=== PATIENT | male | born 1955 | race Caucasian/White ===

== ENCOUNTER → 2022-05-09 | Outpatient (CLI) | payer BC, SELFPAY ==
--- NOTE | 2022-05-09 16:14 | RAD_ITS ---
STUDY: X-RAY - LEFT FOOT CLINICAL: Male, 66 years old. PAIN TECHNIQUE: 3 view(s) of the foot. COMPARISON: None. FINDINGS: Normal talus, calcaneus, and tarsal bones. Normal visualized subtalar, talonavicular, calcaneocuboid, tarsal and tarsometatarsal articulations. Normal metatarsi. Normal metatarsophalangeal joint of the great toe. Normal tibial and fibular sesamoid bones. Normal interphalangeal joint of the great toe. Normal phalanges of the great toe. Normal second through fifth metatarsophalangeal joints. The is visualized hammertoe deformity of the third and fourth digits. There is a irregular appearance of the proximal interphalangeal joint of the fourth digit which may represent prior injury and/or degenerative change. The soft tissue structures are unremarkable. RAD/Foot min 3 Views IMPRESSION: The is visualized hammertoe deformity of the third and fourth digits. There is a irregular appearance of the proximal interphalangeal joint of the fourth digit which may represent prior injury and/or degenerative change. Electronically Signed: Yumi Marlow MD at 3:11 EDT Reading Location ID and State: [facility] / [place] Tel , Service support ,
== END | disposition home or self-care (01) ==
LOC: MTRAD 16:13
PROVIDERS: PCP Family Medicine; Referring Provider Podiatrist; Visit Provider Podiatrist
DX: M84.375A Stress fracture, left foot, initial encounter for fracture (principal); X58.XXXA Exposure to other specified factors, initial encounter
CPT/HCPCS: 73630

== ENCOUNTER → 2023-02-08 | Outpatient (CLI) | payer BC, SELFPAY ==
[2023-02-08 18:17] LABS: Hemoglobin A1c 8.2 % (3.8-5.6)
== END | disposition home or self-care (01) ==
LOC: MTLAB 15:47
PROVIDERS: PCP Family Medicine; Referring Provider Orthopaedic Surgery; Visit Provider Orthopaedic Surgery
DX: E11.9 Type 2 diabetes mellitus without complications (principal)
CPT/HCPCS: 36415; 83036

== ENCOUNTER → 2023-03-08 | Outpatient (CLI) | payer BC, SELFPAY ==
[2023-03-08 18:19] LABS: Hemoglobin A1c 7.3 % (3.8-5.6)
== END | disposition home or self-care (01) ==
LOC: MTLAB 15:17
PROVIDERS: PCP Family Medicine; Referring Provider Orthopaedic Surgery; Visit Provider Orthopaedic Surgery
DX: E11.9 Type 2 diabetes mellitus without complications (principal)
CPT/HCPCS: 36415; 83036

== ENCOUNTER 2023-05-01 10:02 | Observation (INO) | payer BC, MEDICARE, SELFPAY ==
[2023-04-17 17:18] LABS: Absolute Lymphocyte Count 1.66 X10^3/uL (0.83-4.51); Basophil# 0.03 X10^3/uL; Basophil% 0.5 % (0-1); Eosinophil# 0.12 X10^3/uL; Eosinophils% 1.9 % (0-5); Hematocrit 47.1 % (40-54); Hemoglobin 15.8 g/dL (13.0-16.5); Lymphocyte # 1.66 X10^3/ul (0.83-4.51); Lymphocyte % 26.1 % (19-41); Mean Corp Hgb Conc 33.5 g/dL (32-36); Mean Corpuscular Hgb 31.5 pg (27.0-32.0); Mean Corpuscular Volume 93.8 fL (80-94); Monocyte# 0.58 X10^3/uL; Monocyte% 9.1 % (0-10); NRBC Flagged by Analyzer 0 % (0-5); Neutrophil # 3.96 X10^3/uL (2.7-7.7); Neutrophil % 62.1 % (47-70); Platelet Count 194 K/mm3 (150-450); RBC Distribution Width CV 11.9 % (11.6-14.6); RBC Distribution Width SD 41.1 fl (35.1-43.9); Red Blood Count 5.02 M/mm3 (4.6-6.2); White Blood Count 6.4 K/mm3 (4.4-11.0)
[2023-04-17 17:51] LABS: Anion Gap 6 (5-15); BUN 21 mg/dL (7-18); BUN/Creat Ratio 27.7 RATIO (10-20); Calcium,Total 9.4 mg/dL (8.5-10.1); Chloride 105 mmol/L (98-107); Creatinine, Serum 0.76 mg/dL (0.70-1.30); EST Glomerular Filtration Rate 108 mL/min (>60); Est Glom Filt Rate - Afr Amer 131 mL/min (>60); Glucose 106 mg/dL (74-106); Magnesium 2.3 mg/dL (1.6-2.6); Potassium 4.4 mmol/L (3.5-5.1); Sodium Level 138 mmol/L (136-145)
[2023-04-17 18:22] LABS: HIV - WCH Non-Reactive (Nonreactive)
--- NOTE | 2023-04-20 09:19 | EKG12_ITS ---
Test Reason : PREOP Blood Pressure : / mmHG Vent. Rate : 064 BPM Atrial Rate : 064 BPM P-R Int : 184 ms QRS Dur : 090 ms QT Int : 360 ms P-R-T Axes : 049 074 059 degrees QTc Int : 371 ms Normal sinus rhythm Normal ECG Confirmed by KALI FAJARDO ([id number]), city editor LEXI LONGORIA ([id number]) on 04/24/2023 9:04:18 AM Referred By: Luis Enrique Aceves Confirmed By:KALI FAJARDO
[2023-04-26 18:10] LABS: Hepatitis B Surface Antibody Reactive; Hepatitis C Antibody Non-Reactive (Nonreactive)
[2023-04-28 08:10] LABS: Hepatitis A AB, Total Negative (Negative)
--- NOTE | 2023-04-30 09:02 | HP.PCM_ITS ---
History and Physical Add?Addendum MR#: [id number] Acct: [id number] Name: NEFTALY KYLE Rep #: [id number] : 1955 Provider: Dr. Luis Enrique Aceves DO Age/Sex: 67/M [place] [facility] [place] Status: Signed Intake Intake Visit Reasons: LUMBER SPINE Chief Complaint: left low back/ hip pain Is patient in pain?: Yes (left low back/hip) Pain scale (1-10): 6 Allergies No Known Allergies Allergy (Unverified 11/29/22 15:25) [facility] Medical History (Updated 01/17/23 @ 15:33 by Gena Luque) Acute bronchitis, unspecified Surgical History (Updated 11/23/22 @ 14:41 by Steph Jovel) H/O repair of rotator cuff History of appendectomy History of hernia repair Social History (Updated 11/23/22 @ 14:42 by Steph Jovel) household members: spouse Smoking Status: Former smoker alcohol intake: current HPI LUMBER SPINE Chief Complaint: left low back/ hip pain Details: Parts of this documentation were recorded by a scribe, this documentation accurately reflects the service provided and the decisions made by me, Dr. Luis Enrique Aceves DO 01/17/23 [id number]. NEFTALY KYLE is a 67 year old M here today for left low back and left hip pain. Pt. advises he fell down 3 steps back on 11-18-22 and landed on his left wrist. He has had recent lumbar MRI at [facility]. He states his pain radiates into his left thigh to above the knee. He denies numbness or tingling. His pain is aggravated with sitting and laying positions. He treats pain at home with Tylenol and Motrin every 4 hours. Neftaly is a most pleasant gentleman 67 years old who presents in the company of his of 38 years Ramandeep. The story is well told above. The pain in the left side of the back and right buttocks and down the left thigh and even occasionally onto the leg below the knee started sometime later perhaps a week or 2 after the actual fall that he had. Overall is no better than it was. It is a lot harder to sit than it is to stand. He denies any bowel or bladder dysfunction. On examination it is noted that he has very positive tension signs and very positive straight leg raising on the left side. Bending forward makes the pain worse. Bending backward does not bother it at all. He does have a decreased posterior tibialis reflex on the left as compared to the right. He has slight weakness of the EHL on the left as compared to the right. He has no long tract signs. Clonus is absent Babinski's are downgoing. Patellar reflexes are 2+ and equal bilaterally and Achilles reflexes are 1+ and equal bilaterally. I reviewed the MRI scan done at [facility]. The gentleman has a herniated disc at L4-5 to the left side with a small extruded fragment that is right at the base of the L5 nerve root on the left. This of course is the source of his leg pain. It is described as an L5 dermatome. I explained that we should probably try epidural steroid injection for some relief at least at this time before any surgery is anticipated. I am sending him to Dr. Lao for a lumbar epidural steroid injection. I would like to visit with him 2 weeks after that is done. If he does not get reasonable relief or the pain comes back with a vengeance we will schedule him for surgical intervention. Coding Level of Care Code Off vis,new,level 3 Diagnoses Herniation of left side of L4-L5 intervertebral disc M51.26
[2023-05-01] VITALS (14 sets, daily range): BP systolic 108–138; BP diastolic 64–92; PULSE 70–97; RESP 14–18; TEMP 36–37.2; O2SAT 95–100; BMI 25.2
[2023-05-01] MEDS: Magnesium 1 GM over 15 mins IV (06:34)
[2023-05-01] MEDS: Acetaminophen 500 MG Tablet 1000 MG PO ×3 (06:34→22:25)
[2023-05-01] MEDS: Lactated Ringers 1,000 ML 15 ML IV ×2 (06:34→08:40)
[2023-05-01] MEDS: Insulin Lispro 100 UNIT/ML INSULN.PEN SC (06:39)
[2023-05-01 06:57] LABS: Bedside Glucose 283 mg/dL (74-106)
--- NOTE | 2023-05-01 07:30 | DISC_PTH ---
PATIENT: CAMMIE KYLE LOC: MS3 U#:[id number] AGE/SX: 67/M [place] [facility] [place]: Dr. Luis Enrique Aceves DO : 1955 BED: 1 DIS: 05/02/2023 SPEC #: [id number] RECD: 05/01/23 11:24 STATUS: SOL RESiobhan #: [id number] ASHLEY: 05/01/23 07:[address]: Luis Enrique Aceves DEPT: SURGICAL PATHOLOGY RECD BY: Saray Vegas ENTERED: 05/01/23 12:19 SP TYPE: DISC OTHR DR: Dr. Selvin Posey DO Tissues: Intervertebral disc, NOS Procedures: Surgery Specimen Level III HEADER OPERATION: Laminectomy and discectomy L4-L5 left PRE-OP DIAGNOSIS: Herniation of left side of L4-L5 intervertebral disc TISSUE SUBMITTED: L4-L5 disc MICROSCOPIC DIAGNOSIS L4-L5 disc, laminectomy and discectomy: Fragments of fibrocartilaginous tissue with degenerative changes. SO:gil 05/02/2023 MICROSCOPIC DESCRIPTION Slides are reviewed. GROSS DESCRIPTION Received in fixative is one container labeled with the patient's name and designated disc L4-L5. The specimen consists of multiple pieces of charles, indurated tissue that in aggregate measure 2.0 x 2.0 x 0.3 cm. The entire specimen is submitted in one cassette. / SO:gil 05/01/2023 TC:5 CPT: 79149
[2023-05-01 07:31] LABS: Bedside Glucose 200 mg/dL (74-106)
[2023-05-01] MEDS: Cefazolin 2 GM in 0.9% Normal Saline 100 ML IV (07:36)
--- NOTE | 2023-05-01 08:45 | RAD_ITS ---
HISTORY: LAMINECTOMY L4-5, LEFT PLEASE READ FOR PLACEMENT, SURGEON WANTS CONFIRMATION THAT HE IS AIMED AT L4-L5. TECHNIQUE: XR Spine Lumbar 1 View. COMPARISON: None. FINDINGS: VERTEBRAE: For the purposes of this report, the lowest intervertebral disc space is designated at L5-S1. Posterior elements appear intact. ALIGNMENT: No significant anterior or posterior subluxation. INTERVERTEBRAL DISCS: Degenerative endplate changes with mild intervertebral disc space narrowing at multiple levels. SOFT TISSUES: Posterior instrument at the L5-S1 level. RAD/Spine 1 View Any Level IMPRESSION: Posterior instrument at the L5-S1 level. Electronically Signed: Dimple Da Silva MD at 9:08 EDT ,
[2023-05-01] MEDS: THROMBIN (RECOMBINANT) 20,000 UNIT VIAL 20000 UNIT TOPICAL (08:52)
[2023-05-01 09:47] LABS: Bedside Glucose 107 mg/dL (74-106)
--- NOTE | 2023-05-01 10:07 | OP.PCM_ITS ---
Report of Operation Description of Surgical Findings:: Preoperative diagnosis: Herniated disc L4-5 with severe left L5 radiculopathy Postoperative diagnosis: The same Procedure: Lumbar laminectomy discectomy L4-5 on the left CPT code 49460 Surgeon: Dr. Aceves Patient Portal Representative: Bee Blanton NP Anesthesia: General endotracheal by [facility] EBL: Less than 25 cc Drains: None Complications: None Procedure: Patient was taken to the OR where he was placed under general endotracheal anesthesia. A Patel catheter was inserted. Neuro monitoring placed their leads on the patient. He was then put in the prone position on the Zia frame. Care was taken to protect his bony prominences, his genitalia, his ulnar nerves of both elbows, his brachial plexus bilaterally, and his facial features and neck. The back was then prepped and draped in standard fashion. I then made a longitudinal incision centered over what I thought was L4-5 and then opened the lumbar fascia just to the left of the spinous processes. We started with a very small incision so we could extend it if we were not exactly at the right level. We proved to be at L5-S1 I simply moved it up 1 and took another x-ray to confirm that it was now aimed at L4-5. Then elevated paravertebral muscles off the lamina of L4 and the top of the lamina of L5. Out the lamina of L4 with double-action rongeurs I then released the underside of the ligamentum flavum off of the bone of the lamina with such small curettes. Once this was done I went ahead and perform a laminectomy of L4 on the left. I then used a hockey-stick in the near midline and used a sharp knife to split the ligamentum flavum down to the lamina of L5. Then used a curette to release the ligamentum flavum off of the top of the lamina of L5. Then I used the 45 degree Kerrison rongeurs to start removing it. Note that the bulge up the dura was a little bit of a problem to get the remaining ligamentum flavum lateralward but I was able to do it very carefully and open the entire lateral recess. I also performed a laminotomy at the top of L5 and out to near the foramen. In this fashion I was able to retract the nerve root and dura medialward exposing the known herniated disc that was right at the introitus of the foramen. I cut into it with a 15 blade and noted that it was subligamentous I then removed several fragments underneath it that completely decompressed the the nerve then used a hockey- stick to check the foramen there was no more pressure on the L5 nerve. Thorough irrigation was carried out every 10 to 50 minutes in the course of the case to prevent infection. Once we were done we had excellent hemostasis I placed an amniotic membrane on the dura to prevent adhesions to form in the future. Then placed Gelfoam over that. It was so dry that we felt that we did not need a drain. We closed the lumbar fascia using [id number] suture with #1 Vicryl followed by closure of the subcutaneous tissues with 2-0 Vicryl in interrupted fashion. The skin was approximated using skin clips. Sterile dressings were then applied. The patient was then recovered in the OR was moved to his hospital bed and taken to recovery in satisfactory condition. This the end of operative summary on Neftaly Walker. This is Dr. Aceves dictating.
--- NOTE | 2023-05-01 14:38 | PN.HOSP_ITS ---
Subjective Subjective 67-year-old male presents to the hospital for an elective lumbar laminectomy and discectomy at L4-5 on the left due to herniated disc with radiculopathy. Still has some numbness and pain from surgery. No issues since arriving to the floor he says home medications have been stable and has had no recent changes. Objective Data Objective Data Vital Signs: Vital Signs Temp Pulse Resp BP Pulse Ox O2 Del Method O2 Flow Rate 98.1 F 94 18 110/64 98 Room Air 4 05/01/23 13:06 05/01/23 13:06 05/01/23 13:06 05/01/23 13:06 05/01/23 13:06 05/01/23 13:06 05/01/23 12:00 Oxygen Flow Rate (L/min) 4 Oxygen Delivery Method Room Air Weight: 156 lb 8.451 oz Body Mass Index (BMI) 25.2 Intake & Output: Intake and Output for Last 24 Hours 04/30/23 05/01/23 05/02/23 03:59 03:59 03:59 Intake Total 1212 / 1212 Output Total 800 / 800 Balance 412 / 412 Lab / Micro Data 04/17/23 16:51 04/17/23 16:51 Labs: Laboratory Results - last 24 hr 05/01/23 06:27: POC Glucose 283 H 05/01/23 07:14: POC Glucose 200 H 05/01/23 09:17: POC Glucose 107 H Micro: Microbiology 04/17/23 16:51 Swab (Method) Nasal Screen MRSA/MSSA - Final Radiography Diagnostic Testing: Radiology Impression Spine X-Ray 05/01/23 08:45 IMPRESSION: Posterior instrument at the L5-S1 level. Electronically Signed: Dimple Da Silva MD at 9:08 EDT , ADDENDUM: 05/01/23 0939 IMPRESSION: undefined Physical Exam Narrative General: Alert, Oriented x3, Cooperative, No apparent distress HEENT: Atraumatic, PERRLA, EOMI, Normocephalic Oral: Moist Mucosa Neck: Supple, No JVD Lungs: Clear to auscultation, Normal air movement, No rhonchi, No wheeze, No rales Cardiovascular: Regular rate, Regular Rhythm, Normal S1, Normal S2, No murmurs Abdomen: Soft, Non Tender, Non-Distended, No Hepato-splenomegaly Extremities: No edema, Capillary Refill Less than 3 Seconds Skin: Dressing CDI Musculoskeletal: No Tenderness to Palpation of Joints or Extremities Neurological: Cranial nerves II-XII grossly intact, Motor Exam 5/5 strength throughout, Sensory exam intact to light touch and pain Psych/Mental Status: Normal Affect, Appropriate Assessment & Plan Assessment/Plan (1) Herniation of left side of L4-L5 intervertebral disc: PLAN: Plan 1. Status post laminectomy and discectomy of L4-L5 on the left for disc h erniation on 05/01/2023 ? Pain management per primary ? PT/OT per primary 2. DM2 ? Blood sugars are stable, he is in home oral medications ? We will start on a sliding scale insulin with Accu-Cheks ACHS ? We will monitor ? We will be aware that if any imaging with contrast is necessary we will need to discontinue his home medic patient 3. Anxiety/depression ? Stable ? Continue with his home medications DVT: SCDs Charges/Coding Visit Charges Office Visits / Consults: 88878 OV L3 New
[2023-05-01] MEDS: Cefazolin 1 GM/50 ML BAG IV (15:02)
[2023-05-01] MEDS: Lactated Ringers 1,000 ML 100 ML IV (15:02)
[2023-05-01 16:45] LABS: Bedside Glucose 127 mg/dL (74-106)
[2023-05-01] MEDS: diazePAM 5 MG Tablet PO (16:56)
[2023-05-01] MEDS: metFORMIN HCl 500 MG Tablet 1000 MG PO (16:56)
[2023-05-01 22:57] LABS: Bedside Glucose 126 mg/dL (74-106)
[2023-05-02] MEDS: Lactated Ringers 1,000 ML 100 ML IV (00:22)
[2023-05-02] MEDS: Cefazolin 1 GM/50 ML BAG IV (00:22)
[2023-05-02 00:25] VITALS: BP 121/68; PULSE 95; RESP 14; TEMP 37.3; O2SAT 95
[2023-05-02] MEDS: diazePAM 5 MG Tablet PO (00:31)
[2023-05-02 04:30] VITALS: BP 128/73; PULSE 86; RESP 16; TEMP 37.3; O2SAT 95
[2023-05-02] MEDS: oxyCODONE 5 MG Tablet PO (04:44)
[2023-05-02] MEDS: Acetaminophen 500 MG Tablet 1000 MG PO ×2 (05:56→13:13)
[2023-05-02 06:18] LABS: Bedside Glucose 138 mg/dL (74-106)
[2023-05-02] MEDS: Ondansetron 4 MG/2 ML Vial IV (06:51)
[2023-05-02] MEDS: 0.9% Saline Lock 10 ML Syringe IV (06:51)
[2023-05-02] MEDS: Empagliflozin 10 MG Tablet PO (07:41)
[2023-05-02] MEDS: metFORMIN HCl 500 MG Tablet PO (07:41)
[2023-05-02] MEDS: Escitalopram Oxalate 10 MG Tablet PO (07:41)
[2023-05-02 08:00] VITALS: BP 117/63; PULSE 83; RESP 18; TEMP 37.1; O2SAT 97
--- NOTE | 2023-05-02 11:15 | CASEMGMT ---
JUANI PETERSON Assessment: Face to Face with pt for initial transition planning/care coordination assessment. JUANI PETERSON introduced self and role at [facility], pt voices understanding and consents to assessment. Pt is A/O x4 and answers all questions appropriately at this time. Pt sitting up in chair with sister at bedside. Pt is agreeable to assessment with sister present. Care providers, pharmacy, and demographics verified/updated. Admitting Dx: laminectomy L4-5 left PCP:Taty Specialists:Ketan, ortho; Miranda pulyaritza; COLE, cardio Preferred [facility]acy: [facility] Insurance: QUITA [place] Prescription Benefit: yes LNOK: Claudine Walker, Living Arrangements: Pt lives with in a single story home with one step to enter. Pt reports he was I in ADL's prior to surgery. Pt states is able to assist him at home. Pt denies concerns at home. Transportation: Pt drives self and denies concerns with transportation. Pt will transport pt until he is able. DME/HHC/SNF: Pt has a cane at home. He is interested in a FWW. Pt provided with a local in network list of DME companies, pt has no preference. Pt has a BGM with sufficient supply of strips and lancets. Pt denies hx of HHC or SNF stays. Pt states no concerns with going home at time of dc. Pt states no further concerns/needs. CM to follow. Advised pt to ask CM if any further question/concerns/needs arise, voices understanding. Pt Goal: Home Plan: Home, FWW set up
[2023-05-02] MEDS: Insulin Lispro 100 UNIT/ML INSULN.PEN SC (11:35)
--- NOTE | 2023-05-02 11:42 | CASEMGMT ---
Discharge Planning Met with patient to complete BROWN form. BROWN form explained to patient who voiced understanding and signed form. Original form placed in pt?s chart and copy provided to patient. Deja Celeste, Discharge Planning Asst.
[2023-05-02 12:43] VITALS: BP 117/67; PULSE 75; RESP 18; TEMP 36.7; O2SAT 96
--- NOTE | 2023-05-02 13:12 | DCINST_ITS ---
Discharge Instructions Activity May shower in (days): 4 May resume sexual activity in: 4-6 weeks Lifting Restrictions: 15# Dressing / Incision Remove Dressing in: 3 days Follow Up Care Test Results: Test results from this visit will be discussed in further detail at your follow- up appointment, if applicable. Discharge Plan Admission Admit Date/Time: 05/01/23 10:02 Attending Provider: Luis Enrique Aceves Primary Care Provider: Selvin Posey Consulting Providers: Loly Adames Discharge Orders/Prescriptions Prescriptions: No Action metformin 500 mg tablet 500 mg PO BID Rx Instructions: IN AM 500MG, IN PM 1000MG escitalopram oxalate 10 mg tablet 10 mg PO DAILY vitamin B complex [B Complex-Vitamin B12] Tablet 1 tab PO DAILY cholecalciferol (vitamin D3) 25 mcg (1,000 unit) capsule 25 mcg PO DAILY acetaminophen [Tylenol] 325 mg tablet 650 mg PO Q6H PRN (Reason: pain) ibuprofen 600 mg tablet 600 mg PO Q6H PRN (Reason: pain) multivitamin Tablet 1 tab PO DAILY Farxiga 5 mg tablet 5 mg PO DAILY Patient Comments: take 1 tablet by mouth once daily albuterol sulfate 90 mcg/actuation HFA aerosol inhaler 2 puff INHALATION Q4H PRN (Reason: asthma) Patient Comments: inhale 2 puffs by mouth every 4 hours if needed fluticasone propionate [Flovent HFA] 220 mcg/actuation HFA aerosol inhaler 1 inh inhalation BID PRN (Reason: ASTHMA) Other Ambulatory Orders: 12 Lead EKG (Routine) Timeframe: [id number] Location: None Selected Ordered By: Dr. Luis Enrique Aceves Referrals / Follow Up: Selvin Posey DO [Primary Care Provider] - Disposition Disposition (needs filled in before D/C Order can be placed): Home, Self Care
--- NOTE | 2023-05-02 13:15 | PCM.DC.SUM ---
Providers Date of Admission: 05/01/23 Primary Care Physician: Dr. Selvin Posey DO Attending Physician: This is a discharge summary on Neftaly Walker. This patient was admitted yesterday and underwent lumbar laminectomy at the L4-5 level on the left side. He did well after the procedure. Today he reports that all his leg pain that had on the left side is completely gone. He states that his back does not hurt very much at all. The dressings are intact. I gave him and his instructions regarding his activities wound remove the dressing when to shower etc. He will also get some oxycodone 5/325 to take home. He already has an appointment to see me in the office. This is the end of discharge summary on Neftaly Walker. This is Dr. Aceves dictating. Consultations 05/01/23 12:42 Consult: Hospitalist Routine Consulting Provider: Eduardo Barbosa Reason for Consult: Medical Management EMERGENT Consult: No MD Notified: Yes Date Notified: 05/01/23 Time Notified: 14:05 Method of Notification: Text Reason For Visit: Laminectomy L4-5 left Diagnosis Discharge Diagnosis (1) Herniation of left side of L4-L5 intervertebral disc: Status: Acute Code(s): M51.26 - Other intervertebral disc displacement, lumbar region Medications at Discharge Home Medications cholecalciferol (vitamin D3) 25 mcg (1,000 unit) capsule 25 mcg PO DAILY 11/23/22 escitalopram oxalate 10 mg tablet 10 mg PO DAILY 11/23/22 metformin 500 mg tablet 500 mg PO BID 11/23/22 vitamin B complex (B Complex-Vitamin B12 tablet) 1 tab PO DAILY 11/23/22 acetaminophen 325 mg tablet (Tylenol) 650 mg PO Q6H PRN pain 02/08/23 ibuprofen 600 mg tablet 600 mg PO Q6H PRN pain 02/08/23 dapagliflozin propanediol 5 mg tablet (Farxiga) 5 mg PO DAILY 04/17/23 multivitamin 1 tab PO DAILY 04/17/23 albuterol sulfate 90 mcg/actuation aerosol inhaler 2 puff inhalation Q4H PRN asthma 05/01/23 fluticasone propionate 220 mcg/actuation HFA aerosol inhaler (Flovent HFA) 1 inh inhalation BID PRN ASTHMA 05/01/23 Weight / BMI Weight Weight: 156 lb 8.451 oz Body Mass Index (BMI) 25.2 ABG / Lab / Microbiology Data 04/17/23 16:51 04/17/23 16:51 Laboratory: Laboratory Results - last 24 hr 05/01/23 16:28: POC Glucose 127 H 05/01/23 22:24: POC Glucose 126 H 05/02/23 05:58: POC Glucose 138 H Microbiology: Microbiology 04/17/23 16:51 Swab (Method) Nasal Screen MRSA/MSSA - Final D/C Instructions May shower in (days): 4 May resume sexual activity in: 4-6 weeks Meaningful Use Info Meaningful Use Diagnoses (Choose all that apply): None applicable Discharge Plan Admission Admit Date/Time: 05/01/23 10:02 Attending Provider: Luis Enrique Aceves Primary Care Provider: Selvin Posey Consulting Providers: Loly Adames Discharge Orders/Prescriptions Prescriptions: No Action metformin 500 mg tablet 500 mg PO BID Rx Instructions: IN AM 500MG, IN PM 1000MG escitalopram oxalate 10 mg tablet 10 mg PO DAILY vitamin B complex [B Complex-Vitamin B12] Tablet 1 tab PO DAILY cholecalciferol (vitamin D3) 25 mcg (1,000 unit) capsule 25 mcg PO DAILY acetaminophen [Tylenol] 325 mg tablet 650 mg PO Q6H PRN (Reason: pain) ibuprofen 600 mg tablet 600 mg PO Q6H PRN (Reason: pain) multivitamin Tablet 1 tab PO DAILY Farxiga 5 mg tablet 5 mg PO DAILY Patient Comments: take 1 tablet by mouth once daily albuterol sulfate 90 mcg/actuation HFA aerosol inhaler 2 puff INHALATION Q4H PRN (Reason: asthma) Patient Comments: inhale 2 puffs by mouth every 4 hours if needed fluticasone propionate [Flovent HFA] 220 mcg/actuation HFA aerosol inhaler 1 inh inhalation BID PRN (Reason: ASTHMA) Other Ambulatory Orders: 12 Lead EKG (Routine) Timeframe: [id number] Location: None Selected Ordered By: Dr. Luis Enrique Aceves Referrals / Follow Up: Selvin Posey DO [Primary Care Provider] - Disposition Disposition (needs filled in before D/C Order can be placed): Home, Self Care
[2023-05-02 13:32] LABS: Bedside Glucose 224 mg/dL (74-106)
--- NOTE | 2023-05-02 13:51 | CASEMGMT ---
JUANI CM into pt room to deliver FWW. Pt signed consignment form. Referral sent to [facility] [place] via [facility]. Pt ready for dc, present in room.
[2023-05-02 14:30] VITALS: BP 105/73; PULSE 80; RESP 18; TEMP 36.8; O2SAT 97
== END 2023-05-02 14:48 | disposition home or self-care (01) ==
LOC: MS3 05-02 06:36 → AC 05-02 12:32 → SDC 05-02 12:32 → MS3 05-02 12:32
PROVIDERS: Admitting Provider Orthopaedic Surgery; PCP Family Medicine; Referring Provider Orthopaedic Surgery; Visit Provider Orthopaedic Surgery
PROC: (CPT 63030; principal; 2023-05-01 07:00)
DX: M51.16 Intervertebral disc disorders with radiculopathy, lumbar region (principal); E11.9 Type 2 diabetes mellitus without complications; F41.9 Anxiety disorder, unspecified; F32.A Depression, unspecified; Z87.891 Personal history of nicotine dependence; Z79.899 Other long term (current) drug therapy; Z79.84 Long term (current) use of oral hypoglycemic drugs
CPT/HCPCS: 63030; 00630; 36415; 72020; 80048; 82962; 83036; 83735; 85025; 86703; 86706; 86708; 86803; 87077; 87081; 88304; 93005; 94668; 96361; 96365; 96366; 96375; 97162; 97530; 99221; 99252; J7120; A4216; G0378; G0463; J2405; J3475

== ENCOUNTER → 2025-04-10 | Outpatient (CLI) | payer MEDICARE, SELFPAY ==
[2025-04-10 13:17] VITALS: BP 137/79; PULSE 61; RESP 16; O2SAT 99; BMI 27.9
--- NOTE | 2025-04-10 13:34 | CT_ITS ---
PROCEDURE: LIMITED CHEST CT CARDIAC ONLY 04/10/2025 REASON FOR EXAM: CHEST PAIN TECHNIQUE: LIMITED CHEST CT CARDIAC ONLY CONTRAST: Isovue 370 VOLUME: 100 mL One or more dose reduction techniques were used (e.g., Automated exposure control, adjustment of the mA and/or kV according to patient size, use of iterative reconstruction technique). RADIATION DOSE SUMMARY: CTDlvol: 33.6 mGy DLP: 1183.94 mGycm COMPARISON: None FINDINGS: Small benign-appearing mediastinal lymph nodes. The heart is nonenlarged. No calcification of the coronary arteries. The pericardium is unremarkable. The lungs are clear. CT/Limited Chest CT Cardiac Only IMPRESSION: No coronary artery calcification is seen. Reading Location: [id number]
[2025-04-10 13:35] VITALS: PULSE 62
[2025-04-10] MEDS: Nitroglycerin SL (ED/IMG/CATH) 0.4 MG TABLET SL (13:35)
[2025-04-10 13:46] VITALS: BP 123/65; PULSE 72; RESP 16; O2SAT 95
[2025-04-10 13:46] LABS: CREATININE FINGERSTICK < 1.0 mg/dL (0.70-1.30); EGFR FINGERSTICK > 60.0000 mL/min (>60)
--- NOTE | 2025-04-14 17:13 | CCTA_ITS ---
CCTA w/Cont Coronary Arteries Date of Study:: 04/10/25 Chest pain Coronary Calcium Scoring: High-resolution Computed Tomographic imaging of the chest was performed on [04/20/2025], with particular attention paid to the coronary arteries. Intravenous contrast agent was administered per protocol and images reconstructed and displayed. LEFT MAIN CORONARY ARTERY: Arises from the left main coronary cusp with no significant atherosclerotic plaquing. It bifurcates the left anterior descending artery and left circumflex artery. [] LEFT ANTERIOR DESCENDING CORONARY ARTERY: The left anterior descending artery continues gives off 2 diagonal branches towards the apex of the ventricle. No high-grade stenosis is present. [] LEFT CIRCUMFLEX CORONARY ARTERY: The left circumflex artery is a nondominant ves otoniel. No significant atherosclerotic plaquing is noted. [] RIGHT CORONARY ARTERY: The right coronary artery is dominant with no significant atherosclerotic plaquing noted. [] Calcium Scoring Interpretation: Different methods to categorize the overall amount of coronary plaque. Overall amount CAC SIS Visual of coronary plaque P1 Mild -100 <2 1-2 vessels with mild amount of plaque P2 Moderate 101-300 3-4 1-2 vessels with moderate amount, 3 vessels with mild amount of plaque P3 Severe 301-999 5-7 3 vessels with moderate amount, 1 vessel with severe amount of plaque P4 Extensive >1000 >8 2-3 vessels with severe amount of plaque Conclusion: CT angiogram with no high-grade stenosis present.
== END | disposition home or self-care (01) ==
LOC: CT 13:03
PROVIDERS: Referring Provider Nurse Practitioner Family; Visit Provider Nurse Practitioner Family
DX: R07.9 Chest pain, unspecified (principal)
CPT/HCPCS: 75574; 76380; Q9967